=== PATIENT | male | born 1970 | race Hispanic/Latino ===

== ENCOUNTER 2019-03-20 00:21 | Emergency (ER) | payer SELFPAY ==
[2019-03-20] MEDS ORDERED: hydrOXYzine 25 MG TAB ONE (01:54)
== END 2019-03-20 02:01 | disposition home or self-care (01) ==
LOC: ERS 00:21
DX: B86 Scabies (principal)
CPT/HCPCS: 99282

== ENCOUNTER 2019-03-21 18:06 | Emergency (ER) | payer SELFPAY | END 2019-03-21 18:42 | disposition home or self-care (01) | LOC: ERS 18:06 | DX: B86 Scabies (principal) | CPT/HCPCS: 99283 ==